=== PATIENT | female | born 1950 | race Caucasian/White ===

== ENCOUNTER 2022-06-02 11:52 | Observation (INO) | payer MEDICARE, OTHER ==
[~2022-06-02] VITALS: Ht 160 cm; Wt 69.4 kg
[~2022-06-02 11:52] MED LIST: ASPIRIN81 MG PO; CRESTOR10 MG PO; MIDODRINE HCL2.5 MG PO; PAXIL40 MG PO
[2022-06-02] MEDS ORDERED: SODIUM CHLORIDE 0.9% 500ML 500 ML IV STA (12:21)
[2022-06-02 12:48] LABS: BASOPHILS # (AUTO) 0.1 (0.0-0.1); BASOPHILS % 0.6 % (0.0-1.0); EOSINOPHILS # (AUTO) 0.1 (0.0-0.4); HEMATOCRIT 22.5 % (34.2-44.1); INR 0.9; LYMPHOCYTES # (AUTO) 0.9 (1.0-3.2); LYMPHOCYTES % 8.9 % (18.0-39.1); MEAN CORPUSCULAR HEMOGLOBIN 26.3 pg (28-32); MEAN CORPUSCULAR HGB CONC 31.1 g/dL (31-35); MEAN CORPUSCULAR VOLUME 84.6 fL (81-99); MONOCYTES # (AUTO) 0.6 (0.2-0.8); MONOCYTES % 5.9 % (4.4-11.3); NEUTROPHILS # (AUTO) 8.8 (2.1-6.9); PARTIAL THROMBOPLASTIN TIME 29.9 seconds (23.8-35.5); PLATELET COUNT 641 x10e3/uL (140-360); RED BLOOD COUNT 2.66 x10e6/uL (3.6-5.1)
[2022-06-02 12:55] LABS: ALANINE AMINOTRANSFERASE 17 IU/L (0-55); ALBUMIN 3.6 g/dL (3.5-5.0); ALBUMIN/GLOBULIN RATIO 0.9 (0.8-2.0); ALKALINE PHOSPHATASE 50 IU/L (40-150); ANION GAP 13.9 mmol/L (8-16); BLOOD UREA NITROGEN 13 mg/dL (7-26); BUN/CREATININE RATIO 12 (6-25); CALCIUM 8.9 mg/dL (8.4-10.2); CARBON DIOXIDE 21 mmol/L (22-29); CHLORIDE 103 mmol/L (98-107); CREATINE KINASE 26 IU/L (29-168); CREATININE, SERUM 1.09 mg/dL (0.57-1.11); GLUCOSE 82 mg/dL (74-118); POTASSIUM 3.9 mmol/L (3.5-5.1); SODIUM 134 mmol/L (136-145)
[2022-06-02 13:40] LABS: CLARITY,URINE CLEAR (CLEAR); COLOR,URINE YELLOW (YELLOW); LEUKOCYTE ESTERASE ,URINE NEGATIVE (NEGATIVE); NITRITE,URINE NEGATIVE (NEGATIVE)
[2022-06-02 13:41] LABS: KETONES,URINE NEGATIVE (NEGATIVE); PROTEIN,URINE DIPSTICK 2+ (NEGATIVE); URINE UROBILINOGEN 0.2 mg/dL (0.2 - 1)
[2022-06-02 13:57] LABS: BACTERIA,URINE MODERATE /HPF; EPITHELIAL CELLS,URINE FEW /LPF; RBC,URINE 0-5 /HPF (0-5)
[2022-06-02] MEDS ORDERED: SODIUM CHLORIDE 0.9% 250ML 250 ML IV ONE (14:45)
[2022-06-02] MEDS ORDERED: ONDANSETRON HCL INJ 2MG/ML 2ML 2 MG/ML VIAL IV PRN (15:00)
[2022-06-02] MEDS ORDERED: SODIUM CHLORIDE FLUSH 10 ML SYR INJ PRN (15:00)
[2022-06-02] MEDS ORDERED: SUMATRIPTAN SUCCINATE 6 MG/0.5 ML VIAL SC ONE (17:30)
[2022-06-02 17:35] VITALS: BP 116/60
[2022-06-02 17:59] VITALS: BP 116/60
[2022-06-02] MEDS ORDERED: MELOXICAM7.5 MG PO (19:23)
[2022-06-02] MEDS ORDERED: CYMBALTA60 MG PO (19:23)
[2022-06-02 19:31] LABS: % IRON SATURATION 3 % (15-50); IRON 15 ug/dL (50-170); TOTAL IRON BINDING CAPACITY 539 ug/dL (261-478); TRANSFERRIN 385 mg/dL (180-382)
[2022-06-02 20:26] VITALS: BP 139/75
[2022-06-02 21:33] VITALS: BP 139/75
[2022-06-03 05:03] VITALS: BP 145/72
[2022-06-03 06:04] LABS: BASOPHILS % 0.4 % (0.0-1.0); EOSINOPHILS # (AUTO) 0.2 (0.0-0.4); EOSINOPHILS % 1.9 % (0.0-6.0); HEMATOCRIT 24.5 % (34.2-44.1); LYMPHOCYTES # (AUTO) 1.4 (1.0-3.2); LYMPHOCYTES % 14.3 % (18.0-39.1); MEAN CORPUSCULAR HEMOGLOBIN 27.1 pg (28-32); MEAN CORPUSCULAR HGB CONC 32.7 g/dL (31-35); MEAN CORPUSCULAR VOLUME 83.1 fL (81-99); MONOCYTES # (AUTO) 0.7 (0.2-0.8); MONOCYTES % 7.3 % (4.4-11.3); NEUTROPHILS # (AUTO) 7.6 (2.1-6.9); NEUTROPHILS % 75.5 % (38.7-80.0); PLATELET COUNT 570 x10e3/uL (140-360); RED BLOOD COUNT 2.95 x10e6/uL (3.6-5.1); RED CELL DISTRIBUTION WIDTH 14.6 % (11.7-14.4)
[2022-06-03 06:19] LABS: ALBUMIN 3.2 g/dL (3.5-5.0); ALBUMIN/GLOBULIN RATIO 0.9 (0.8-2.0); ANION GAP 11.8 mmol/L (8-16); CALCIUM 8.3 mg/dL (8.4-10.2); CREATININE, SERUM 0.76 mg/dL (0.57-1.11); POTASSIUM 3.8 mmol/L (3.5-5.1)
[2022-06-03] MEDS ORDERED: PANTOPRAZOLE SOD 40 MG TABEC PO SCH (07:30)
[2022-06-03] MEDS ORDERED: ACETAMINOPHEN 325 MG TAB PO PRN (07:45)
[2022-06-03 08:00] VITALS: BP 125/63
[2022-06-03 08:47] VITALS: BP 125/63
[2022-06-03] MEDS ORDERED: IRON SUCROSE 100 MG in SODIUM CHLORIDE 0.9% 100 ML IV SCH (09:00)
[2022-06-03] MEDS ORDERED: SODIUM CHLORIDE 0.9% 250ML 250 ML ONE (09:16)
[2022-06-03 12:19] VITALS: BP 139/72
== END 2022-06-03 12:06 | disposition home or self-care (01) ==
LOC: ER 12:14 → ERHOLD 14:51 → MED/SURG3 17:35
PROVIDERS: ADMIT Internal Medicine; ATTEND Internal Medicine
DX: D50.9 Iron deficiency anemia, unspecified (principal); F32.A Depression, unspecified; Z85.3 Personal history of malignant neoplasm of breast; Z20.822 Contact with and (suspected) exposure to COVID-19
CPT/HCPCS: 36415 ×2; 71045 ×2; 80053 ×2; 81001; 82550; 82553; 83540; 84466; 84484 ×2; 85025 ×2; 85610; 85730; 86850; 86900; 86920; 93005 ×2; 99284; G0378 ×2; J1756; J3030; J7040; J7050 ×3; P9016; S0164; U0002

== ENCOUNTER → 2022-08-26 | Outpatient (CLI) | payer MEDICARE, OTHER ==
[~2022-08-26] MED LIST changes: +CYMBALTA60 MG PO; +MELOXICAM7.5 MG PO
== END ==
LOC: DX 08:32
PROVIDERS: ATTEND Internal Medicine Gastroenterology
DX: D12.5 Benign neoplasm of sigmoid colon (principal)
CPT/HCPCS: 74270

== ENCOUNTER 2025-08-06 18:46 | Observation (INO) | payer MEDICARE, OTHER ==
[~2025-08-06] VITALS: Ht 157.5 cm; Wt 57.6 kg
[2025-08-06 19:35] VITALS: PULSE 71; RESP 17; TEMP 98.4
[2025-08-06 20:04] LABS: BASOPHILS % 0.3 % (0.0-1.0); EOSINOPHILS % 3.0 % (0.0-6.0); LYMPHOCYTES % 26.6 % (18.0-39.1); MONOCYTES % 7.7 % (4.4-11.3); NEUTROPHILS % 62.2 % (38.7-80.0); RED CELL DISTRIBUTION WIDTH 12.7 % (11.7-14.4)
[2025-08-06 20:38] LABS: EST GLOMERULAR FILTRATION RATE 54.0 ML/MIN (>=60)
[2025-08-06] MEDS: SODIUM CHLORIDE 0.9% 1000ML 1,000 ML IV SCH (23:05)
[2025-08-07] VITALS (7 sets, daily range): BP systolic 134–153; BP diastolic 77–88; PULSE 61–87; RESP 18; TEMP 96.5–98.2; O2SAT 95–100
[2025-08-07 05:49] LABS: BASOPHILS % 0.5 % (0.0-1.0); EOSINOPHILS % 3.5 % (0.0-6.0); LYMPHOCYTES % 31.0 % (18.0-39.1); MONOCYTES % 9.5 % (4.4-11.3); NEUTROPHILS % 55.3 % (38.7-80.0); RED CELL DISTRIBUTION WIDTH 12.4 % (11.7-14.4)
[2025-08-07 06:24] LABS: EST GLOMERULAR FILTRATION RATE 84.0 ML/MIN (>=60)
[2025-08-07] MEDS ORDERED: LEVOTHYROXINE50 MCG PO (07:06)
[2025-08-07] MEDS ORDERED: RIZATRIPTAN5 MG (07:08)
[2025-08-07] MEDS: ACETAMINOPHEN 325 MG TAB PO PRN (13:46)
[2025-08-07] MEDS ORDERED: ASPIRIN 81 MG CHEW TAB PO SCH (19:45)
[2025-08-07] MEDS ORDERED: MELOXICAM 7.5 MG TAB PO SCH (20:00)
[2025-08-07] MEDS ORDERED: SIMVASTATIN 20 MG TAB PO SCH (21:00)
[2025-08-08] MEDS ORDERED: LEVOTHYROXINE SODIUM 50 MCG TAB PO SCH (06:00)
[2025-08-08] MEDS ORDERED: DULOXETINE HCL 30 MG DELAYED RELEASE PO SCH (09:00)
[2025-08-08] MEDS ORDERED: NON-FORMULARY MEDICATION PO SCH (09:00)
== END 2025-08-07 20:30 | disposition home or self-care (01) ==
LOC: ER 18:59 → ERHOLD 21:57 → MED/SURG2 23:12
PROVIDERS: ADMIT Internal Medicine; ATTEND Internal Medicine
DX: R00.2 Palpitations (principal); I45.10 Unspecified right bundle-branch block; E87.6 Hypokalemia; I10 Essential (primary) hypertension; E78.5 Hyperlipidemia, unspecified; F41.9 Anxiety disorder, unspecified; Z85.3 Personal history of malignant neoplasm of breast; Z90.13 Acquired absence of bilateral breasts and nipples; G43.909 Migraine, unspecified, not intractable, without status migrainosus
CPT/HCPCS: 36415 ×2; 71045; 80053 ×2; 82550 ×2; 83690; 83880; 84484 ×2; 85025 ×2; 93005; 93306; 99284; G0378 ×2; J7030 ×2